=== PATIENT | male | born 1990 | race Caucasian/White ===

== ENCOUNTER 2019-11-26 07:42 | Emergency (ER) | payer OTHER, SELFPAY ==
[2019-11-26 07:43] VITALS: BP 135/62; PULSE 92; RESP 18; TEMP 37.1; O2SAT 100; BMI 20.3
[2019-11-26 07:56] VITALS: BP 135/62; PULSE 92; RESP 18; TEMP 37.1; O2SAT 100
--- NOTE | 2019-11-26 08:03 | ED.VIS.GEN ---
History of Present Illness Chief Complaint: Ear Problem Informant: Patient, Family Onset: Today, Yesterday Maximum Severity: Mild Narrative: Patient presents complaining of ear pressure ear pain bilaterally since that he has fluid in his ears, he has a history of chronic otitis media he has ear infections relatively frequently throughout the year last one was in October he seen ENT multiple times most recently in October was placed on amoxicillin told he might need tympanostomy tubes today he woke up with the symptoms complained of a constant sense of fluid in his ears felt slightly dizzy and he was brought to the hospital , he had no head injury no fever no cough chronic rhinorrhea no chest or abdominal pain #6 paresthesias he just feels as if he has fluid in his ears Past Medical History - Allergies and Home Meds Allergies/Adverse Reactions: Allergies No Known Allergies Allergy (Verified 11/26/19 07:45) Primary Care Physician: Won Bonner MD [Primary Care Provider] - Past Medical History: - - Acute recurrent chronic otitis media Smoking Status: Never smoker Review of Systems General: Denies: Chills, Fever, Sweats Eyes: Denies: Visual changes - bilaterally, Diplopia ENT: Reports: Bilateral ear pain, Rhinorrhea. Denies: Sore throat Cardiovascular: Denies: Chest pain, Palpitations Respiratory: Denies: Dyspnea, Cough, Dyspnea on exertion Gastrointestinal: Denies: Abdominal pain, Nausea, Vomiting, Diarrhea, Melena, Hematochezia Genitourinary: Denies: Dysuria, Hematuria, Frequency Musculoskeletal: Denies: Back pain, Extremity Pain Skin: Denies: Rash, Wounds Neurological: Denies: Headache, Weakness, Numbness Physical Exam Vital Signs/Narrative: Vital Signs Temp Pulse Resp BP Pulse Ox 11/26/19 07:56 98.8 F 92 18 135/62 H 100 11/26/19 07:43 98.8 F 92 18 135/62 H 100 General: Well nourished, Well developed, No Acute Distress Head: Normocephalic, Atraumatic Eyes: Perrl, EOMI ENT: Moist mucous membranes, - - Does appear to have bilateral serous otitis media with redness of the TM he has copious rhinorrhea he is awake alert answering questions his neck and head movement are normal. Negative for: No rhinorrhea Neck: Supple, Nontender Cardiovascular: Regular rate, Regular rhythm, No murmurs Respiratory: No distress, CTA bilaterally, Chest nontender Abdomen: Soft, Nontender, Nondistended, Normal bowel sounds Back: Nontender, Normal Inspection Extremities: Nontender, No edema Skin: Normal color, No rash Neurological: Alert, Oriented x3, Cranial nerves II-XII grossly intact, Normal Strength, Normal Sensation Psychological: Normal affect, Normal Mood Diagnostic/Tx/Re-eval - Medical Decision Making His vital signs are unremarkable he is awake alert answering questions moving all 4 he has a sense of fluid in his ears that make him slightly dizzy he has had this before he indicates he seen ENT has been told he may require tympanostomy tubes he reports he is usually treated with amoxicillin which resolved his symptoms given all the above he is comfortable with discharge home as is the he will be started on amoxicillin Toradol here Tylenol Naprosyn for pain and to follow-up with ENT and return for symptoms Stable home Final impression bilateral otitis media ED Disposition - Plan for ED Patient: Diagnosis: Otitis media Instructions: OTITIS MEDIA, Abx Tx (Adult) Prescriptions: Amoxicillin 500 mg PO TID #30 tab Prescription Printed Naproxen [Naprosyn] 500 mg PO BID PRN #20 tab Prescription Printed Referrals: Won Bonner MD [Primary Care Provider] -
[2019-11-26 08:07] VITALS: RESP 16
[2019-11-26] MEDS: Ketorolac 60 MG/2 ML Vial IM (08:12)
[2019-11-26] MEDS: AMOXICILLIN 500 MG CAPSULE PO (08:13)
[2019-11-26] MEDS: Acetaminophen 500 MG Tablet 1000 MG PO (08:33)
== END 2019-11-26 08:33 | disposition home or self-care (01) ==
PROVIDERS: Emergency Provider Emergency Medicine; PCP Family Medicine
DX: H65.93 Unspecified nonsuppurative otitis media, bilateral (principal)
CPT/HCPCS: 96372; 99281